=== PATIENT | female | born 1930 | race Caucasian/White ===

== ENCOUNTER 2019-06-08 10:48 | Emergency (ER) | payer OTHER ==
[~2019-06-08] VITALS: Ht 162.6 cm; Wt 68.0 kg
[~2019-06-08 10:48] MED LIST: ALBUTEROL2.5 MG/3 M IH; ATACAND4 MG; BACLOFEN10 MG; CYMBALTA20 MG; DEPAKOTE ER250 MG; EXELON1 EACH; FOLIC ACID1 MG; HUMIRA40 MG/0.8; MYSOLINE50 MG; NEURONTIN300 MG; PREDNISONE20 MG PO; PROTONIX20 MG; SYNTHROID50 MCG; TESSALON200 MG PO; XANAX0.25 MG; XARELTO20 MG; [UNRECOGNIZED DRUG - OTHER]
[2019-06-08] MEDS ORDERED: PROTONIX40 MG (10:57)
[2019-06-08] MEDS ORDERED: CYMBALTA60 MG (10:57)
[2019-06-08] MEDS ORDERED: GABAPENTIN800 MG PO (10:58)
== END 2019-06-08 13:41 | disposition home or self-care (01) ==
LOC: ER 10:48
DX: S00.03XA Contusion of scalp, initial encounter (principal); S80.02XA Contusion of left knee, initial encounter; S80.01XA Contusion of right knee, initial encounter; S40.022A Contusion of left upper arm, initial encounter; W18.09XA Striking against other object with subsequent fall, initial encounter; Y93.89 Activity, other specified; Y92.128 Other place in nursing home as the place of occurrence of the external cause; Y99.8 Other external cause status